=== PATIENT | male | born 1945 | race Caucasian/White ===

== ENCOUNTER → 2018-01-01 | Day surgery (SDC) | payer OTHER, MEDICAID ==
[~2018-01-01] MED LIST: LIDOCAINE 2% INJ 100 MG/5 ML SDV (FOR ANES.) As Ordered; LR 1,000 ML IV; MIDAZOLAM INJ 2 MG/2 ML VIAL (J2250) As Ordered; PHENYLephrine HCL 500 MCG/5 ML (100MCG/ML) SYRINGE (J2370) As Ordered; PROPOFOL 200 MG/20 ML VIAL As Ordered; ceFAZolin SOD 1 GM in D5W MINI-BAG PLUS 50 ML IV; fentaNYL 100 MCG/2 ML INJECTION (J3010) As Ordered
== END | disposition home or self-care (01) ==
LOC: M SDC 08:12
DX: N47.1 Phimosis (principal); Z53.09 Procedure and treatment not carried out because of other contraindication

== ENCOUNTER 2018-01-23 05:44 | Day surgery (SDC) | payer OTHER, MEDICAID ==
[~2018-01-23] VITALS: Ht 180.3 cm; Wt 170.6 kg
[~2018-01-23 05:44] MED LIST changes: +ASPI325T PO; +ATEN50TA2 PO; +BENZ200C70 PO; +COMBAER6 INH; +DICL1GEL3 TOP; +IPRA0.00 INH; -LIDOCAINE 2% INJ 100 MG/5 ML SDV (FOR ANES.) As Ordered; -LR 1,000 ML IV; +METF500T13 PO; -MIDAZOLAM INJ 2 MG/2 ML VIAL (J2250) As Ordered; +MSIR30TA PO; +MULTTAB26 PO; +NAPR-885 PO; +NEXI40CA PO; +OXYC1TAB23 PO; +PANT40TA3 PO; -PHENYLephrine HCL 500 MCG/5 ML (100MCG/ML) SYRINGE (J2370) As Ordered; +PRAV80TA2 PO; +PROAAER10 INH; -PROPOFOL 200 MG/20 ML VIAL As Ordered; +TORS20TA2 PO; +VALS1TAB47 PO; -ceFAZolin SOD 1 GM in D5W MINI-BAG PLUS 50 ML IV; -fentaNYL 100 MCG/2 ML INJECTION (J3010) As Ordered
[2018-01-23] MEDS ORDERED: LIDOCAINE 1% MDV 20ML VIAL SQ PRN (06:00)
[2018-01-23] MEDS ORDERED: ceFAZolin SOD 1 GM in D5W MINI-BAG PLUS 50 ML IV ONE (06:00)
[2018-01-23] MEDS ORDERED: LR 1,000 ML IV ONE (06:00)
[2018-01-23] MEDS ORDERED: BACITRACIN OINT 30GM As Ordered ONE (06:54)
[2018-01-23] MEDS ORDERED: LIDOCAINE 2% INJ 100 MG/5 ML SDV (FOR ANES.) As Ordered ONE ×2 (06:56→06:57)
[2018-01-23] MEDS ORDERED: ONDANSETRON 4MG/2ML VIAL (J2405) As Ordered ONE ×2 (06:56→06:57)
[2018-01-23] MEDS ORDERED: PROPOFOL 200 MG/20 ML VIAL As Ordered ONE ×3 (06:56→09:27)
[2018-01-23] MEDS ORDERED: dexameTHASONE 4 MG/ML 1ML VIAL (J1100) As Ordered ONE (06:57)
[2018-01-23] MEDS ORDERED: MIDAZOLAM INJ 2 MG/2 ML VIAL (J2250) As Ordered ONE (06:58)
[2018-01-23] MEDS ORDERED: fentaNYL 100 MCG/2 ML INJECTION (J3010) As Ordered ONE (06:59)
[2018-01-23] MEDS ORDERED: PANT40TA3 PO (07:11)
[2018-01-23 07:34] LABS: INR 0.88
[2018-01-23] MEDS ORDERED: KETAMINE HCL 200 MG/20 ML VIAL As Ordered ONE (07:36)
[2018-01-23] MEDS ORDERED: LIDOCAINE 1% SDV INJ 30 ML VIAL As Ordered ONE (07:47)
[2018-01-23] MEDS ORDERED: LABETALOL HCL 100 MG/20 ML VIAL As Ordered ONE (07:48)
[2018-01-23] MEDS ORDERED: KETOROLAC 30 MG/ML VIAL (J1885) IV PRN (10:15)
[2018-01-23] MEDS ORDERED: fentaNYL 100 MCG/2 ML INJECTION (J3010) IV PRN (10:15)
[2018-01-23] MEDS ORDERED: LR 1,000 ML IV SCH (10:15)
[2018-01-23] MEDS ORDERED: METOCLOPRAMIDE INJ 10MG/2ML VIAL (J2765) IV PRN (10:15)
[2018-01-23] MEDS ORDERED: ONDANSETRON 4MG/2ML VIAL (J2405) IV PRN (10:15)
[2018-01-23] MEDS ORDERED: PERCOCET 5MG/325MG TAB PO PRN ×3 (10:15)
[2018-01-23 11:30] VITALS: BP 184/88
--- NOTE | 2018-01-24 06:50 | RO ---
DATE OF PROCEDURE: 01/23/2018 PREPROCEDURE DIAGNOSIS: Phimosis. POSTPROCEDURE DIAGNOSIS: Phimosis. PROCEDURE: Circumcision. SURGEON: Dr. Jorge Mcbride PROSTHETICS TECHNICIAN: None. ANESTHESIA: MAC. OPERATIVE INDICATIONS: This is a 72-year-old male with phimosis who is having a difficult time retracting his foreskin and therefore wants to go to the operating room today for the above listed procedure. DESCRIPTION OF PROCEDURE: The patient was brought to the operating room and MAC anesthesia was administered. Prophylactic antibiotics were infused. He was then placed in the supine position, prepped and draped in the usual sterile fashion. At this point, I also administered 1% lidocaine for a penile block. Of note, I was not able to retract the foreskin at all. I therefore performed a dorsal slit so I could retract the foreskin all the way back. The patient was then prepped again underneath the foreskin. At this point, circumcising incisions were made with the foreskin completely retracted at the level of the coronal sulcus and then with the foreskin pulled back over the glans as well. These two circumcising incisions were then connected using Bovie electrocautery. The foreskin was then completely removed between these two incisions using electrocautery. The skin of the penile shaft was then reapproximated to the glans using interrupted #3-0 chromic sutures. This was done after hemostasis was obtained using cautery. Once the skin was reapproximated, dressings were applied, including a Violeta and a Coban dressing. Once dressings were applied, this marked the conclusion of the procedure. The patient was then awakened from anesthesia and transported to the recovery room in stable condition. Estimated blood loss 15 mL. Complications: None. Specimens: Foreskin. Plan: The patient will followup in the clinic in a week or two for a postoperative visit.
== END 2018-01-23 11:35 | disposition home or self-care (01) ==
LOC: M SDC 05:44
PROVIDERS: ATTEND Urology
DX: N47.1 Phimosis (principal); N48.5 Ulcer of penis; I10 Essential (primary) hypertension; E11.9 Type 2 diabetes mellitus without complications; E78.5 Hyperlipidemia, unspecified; K21.9 Gastro-esophageal reflux disease without esophagitis; R06.09 Other forms of dyspnea; M54.9 Dorsalgia, unspecified; M95.4 Acquired deformity of chest and rib; J44.9 Chronic obstructive pulmonary disease, unspecified; R06.83 Snoring; G47.30 Sleep apnea, unspecified; E66.9 Obesity, unspecified; Z68.42 Body mass index [BMI] 45.0-49.9, adult; Z79.899 Other long term (current) drug therapy; Z79.82 Long term (current) use of aspirin; Z79.84 Long term (current) use of oral hypoglycemic drugs; Z86.73 Personal history of transient ischemic attack (TIA), and cerebral infarction without residual deficits; Z87.891 Personal history of nicotine dependence; Z96.653 Presence of artificial knee joint, bilateral
CPT/HCPCS: 36415; 54161; 85610; 88304; J0690; J2250; J2405; J3010

== ENCOUNTER → 2018-04-03 | Outpatient (REF) | payer OTHER, MEDICAID, MEDICARE ==
[2018-04-03 14:08] LABS: BASO # 0.1 10^3/uL (0.0-0.2); BASO % 0.8 % (0.0-1.0); EOS # 0.3 10^3/uL (0.0-0.50); EOS % 3.6 % (0.0-3.0); HEMATOCRIT 49.5 % (42.0-52.0); HEMOGLOBIN 14.8 g/dl (13.5-17.5); LYMPH # 1.4 10^3/uL (1.5-4.5); LYMPH % 16.7 % (24.0-44.0); MEAN CORPUSCULAR HEMOGLOBIN 28.6 pg (27.0-33.0); MEAN CORPUSCULAR HGB CONC 29.9 g/dl (32.0-36.5); MEAN CORPUSCULAR VOLUME 95.7 fl (80.0-96.0); MONO # 0.6 10^3/uL (0.0-0.8); MONO % 6.4 % (0.0-5.0); NEUTROPHILS # 6.2 10^3/uL (1.8-7.7); PLATELET COUNT, AUTOMATED 297 10^3/uL (150-450); RED BLOOD COUNT 5.17 10^6/uL (4.30-6.10); WHITE BLOOD COUNT 8.6 10^3/uL (4.0-10.0)
[2018-04-03 14:44] LABS: ALBUMIN 3.8 GM/DL (3.2-5.2); ALT/SGPT 24 U/L (12-78); BILIRUBIN,TOTAL 0.4 MG/DL (0.2-1.0); BLOOD UREA NITROGEN 17 MG/DL (7-18); CALCIUM LEVEL 8.8 MG/DL (8.8-10.2); CARBON DIOXIDE LEVEL 34 MEQ/L (21-32); CHLORIDE LEVEL 103 MEQ/L (98-107); CREATININE FOR GFR 0.76 MG/DL (0.70-1.30); FREE T4 0.93 NG/DL (0.76-1.46); GLOMERULAR FILTRATION RATE > 60.0 (>42); GLUCOSE, FASTING 96 MG/DL (70-100); MAGNESIUM LEVEL 1.9 MG/DL (1.8-2.4); POTASSIUM SERUM 5.2 MEQ/L (3.5-5.1); SODIUM LEVEL 142 MEQ/L (136-145)
[2018-04-04 15:58] LABS: NT-PRO BNP 35 PG/ML (<125)
== END ==
LOC: M LAB REF 13:28
PROVIDERS: ATTEND Internal Medicine Pulmonary Disease
DX: J44.9 Chronic obstructive pulmonary disease, unspecified (principal)

== ENCOUNTER → 2018-04-16 | Outpatient (CLI) | payer MEDICARE, MEDICAID ==
--- NOTE | 2018-04-23 23:13 | SLEEPCENT ---
DATE OF PROCEDURE: 04/16/2018 Ordered by: Dr. Carrera Nocturnal polysomnography was performed for the titration of pressure therapy in this patient with obstructive sleep apnea syndrome. For testing, a ResMed Quattro full face mask of large size was used, 8 cm of water pressure was initially applied to the circuit and lights were extinguished. 7 hours and 37 minutes of data were reviewed. There were 371 minutes of sleep identified. Sleep latency was short at 19.5 minutes. REM latency was mildly prolonged at 141 minutes. Sleep architecture was good. There were two REM cycles noted. Overall sleep efficiency was 82%. The electrocardiogram showed a sinus rhythm with an average heart rate of 60 beats per minute. EEG showed fairly normal waveforms for awake and sleep. Respiratory events were reasonably palliated with C-PAP at a pressure of 11. Hypoventilatory oxygen desaturations prompted the addition of supplemental oxygen. The patient displayed reasonably efficient sleep through REM without significant respiratory events and only mild desaturations using a C-PAP pressure of 11 with 2 liters of oxygen bled through the system. There was also activity noted in the limb leads. Limb movement arousal index was only 3.4. IMPRESSION Obstructive sleep apnea syndrome (G47.33) RECOMMENDATIONS Nightly use of pressure therapy 11 cm of water with 2 liters of oxygen bled through the system to address hypoventilatory oxygen desaturations.
== END ==
LOC: M SLEEP 18:29
PROVIDERS: ATTEND Internal Medicine Pulmonary Disease
DX: G47.33 Obstructive sleep apnea (adult) (pediatric) (principal)

== ENCOUNTER → 2018-09-19 | Outpatient (CLI) | payer MEDICARE, MEDICAID ==
[~2018-09-19] MED LIST changes: +ASPI-1 PO; -ASPI325T PO; -VALS1TAB47 PO; +VALS1TAB67 PO
--- NOTE | 2018-09-20 08:22 | REP ---
MR LUMBAR SPINE WITHOUT CONTRAST: HISTORY: Radiculopathy. Decreased signal intensity on T2-weighted images is present in the L2-3 through L5-S1 intervertebral discs . The discs are decreased in height. These findings are consistent with disc degeneration. There is no disc bulge or herniation at the L1-2 level. The L1 nerves exit the neural foramina without compression. A diffuse disc bulge is present at the L2-3 level. There is minimal compression of the thecal sac. There is hypertrophy of the posterior articulating facets. The L2 nerves exit the neural foramina without compression. A diffuse disc bulge is present at the L3-4 level. There is minimal compression of the thecal sac. There is hypertrophy of the ligamenta flava and posterior articulating facets. The L3 nerves exit the neural foramina without compression. A diffuse disc bulge is present at the L4-5 level. There is minimal compression of the thecal sac. There is hypertrophy of the posterior articulating facets. The L4 nerves exit the neural foramina without compression. A diffuse disc bulge is present at the L5-S1 level. There is minimal compression of the thecal sac. There is hypertrophy of the posterior articulating facets. There are 4 mm of grade 1 spondylolisthesis of L5 on S1. This is associated with L5 pars defects. There is compression of the left L5 nerve in the neural foramen. The right L5 nerve exits the neural foramen without compression. The conus medullaris is normal in appearance terminating at the level of the T12-L1 intervertebral discs . Normal signal intensity is present in the lumbar vertebral bodies. IMPRESSION: Diffuse disc bulges at the L2-3 through L5-S1 levels with minimal thecal sac compression. There is grade 1 spondylolisthesis of L5 on S1 with associated L5 pars defects. There is compression of the left L5 nerve in the neural foramen. Electronically Signed by Vito Pierce MD 09/20/2018 08:24 A
== END ==
LOC: M RAD 15:54
PROVIDERS: ATTEND Nurse Practitioner Family
DX: M51.26 Other intervertebral disc displacement, lumbar region (principal); M51.27 Other intervertebral disc displacement, lumbosacral region; M43.17 Spondylolisthesis, lumbosacral region

== ENCOUNTER → 2021-02-07 | Outpatient (REF) | payer MEDICARE, MEDICAID ==
[~2021-02-07] MED LIST changes: +PANT40TA29 PO; -PANT40TA3 PO
[2021-02-07 18:55] LABS: CREATININE, URINE 82.3 MG/DL; MALB URINE SIEMENS < 5.0 MG/L
== END ==
LOC: M LAB REF 17:04
PROVIDERS: ATTEND Internal Medicine Endocrinology, Diabetes & Metabolism
DX: E11.65 Type 2 diabetes mellitus with hyperglycemia (principal)